=== PATIENT | female | born 1960 | race Hispanic/Latino ===

== ENCOUNTER 2019-12-02 17:32 | Emergency (ER) | payer BC ==
--- NOTE | 2019-12-02 18:46 | RAD REPORT ---
EXAM DESCRIPTION: CT - Head Brain Wo Cont - 12/02/2019 6:31 pm CLINICAL HISTORY: Numbness/Levin's palsy COMPARISON: None. TECHNIQUE: Computed axial tomography of the head was obtained. IV contrast was not requested. All CT scans are performed using dose optimization technique as appropriate and may include automated exposure control or mA/KV adjustment according to patient size. FINDINGS: An intracranial bleed is not seen . The ventricles are normal in caliber. No extra-axial fluid collection is noted. Fluid within the sinuses/ mastoids is not seen. IMPRESSION: No acute intracranial abnormality is seen. If patient's symptoms persist MRI of the bra in would be recommended.
[2019-12-02] MEDS ORDERED: LORAZEPAM 1 MG TABLET ONE (19:11)
[2019-12-02] MEDS ORDERED: predniSONE 20 MG TAB ONE (19:11)
[2019-12-02] MEDS ORDERED: ACYCLOVIR 400 MG TABLET ONE (19:11)
--- NOTE | 2019-12-02 19:24 | ER ---
Nurse's Notes [facility] Name: Taylor Day Age: 59 yrs Sex: Female : 1960 Arrival Date: 12/02/2019 Time: 17:36 Bed 13 Private MD: Diagnosis: Levin's palsy Presentation: 12/02 17:49 Presenting complaint: Patient states: i was at my doctors office because she wants me tw2 to come here, because they want to make sure it is a stroke, they called the er doctor here, i noticed Saturday the delayed blinking and numbness on my mouth on the left side. Transition of care: patient was not received from another setting of care. Onset of symptoms. Risk Assessment: Do you want to hurt yourself or someone else? Patient reports no desire to harm self or others. Initial Sepsis Screen: Does the patient meet any 2 criteria? No. Patient's initial sepsis screen is negative. Does the patient have a suspected source of infection? No. Patient's initial sepsis screen is negative. Care prior to arrival: None. 17:49 Method Of Arrival: Ambulatory tw2 17:49 Acuity: ANNE 2 tw2 17:51 Presenting complaint: Patient states: i was taken off my blood pressure medicine i was tw2 on lisinopril but i was taken off about 3 months ago i still take the statin medication. Triage Assessment: 17:51 General: Appears in no apparent distress. slender, well groomed, Behavior is calm, tw2 cooperative, appropriate for age. Pain: Complains of pain in "headache". Historical: - Allergies: 17:53 No Known Allergies; tw2 - Home Meds: 17:53 atorvastatin 20 mg oral tab 1 tab once daily [Active]; tw2 - PMHx: 17:53 Hypertension; Hyperlipidemia; tw2 - PSHx: 17:53 partial hysterectomy; tw2 - Immunization history:: Adult Immunizations. - Coronavirus screen:: The patient has NOT traveled to [place] in the past 14 days. - Social history:: Smoking status: . - Ebola Screening: : Patient denies travel to an Ebola-affected area in the 21 days before illness onset. Screenin:10 Abuse screen: Denies threats or abuse. Denies injuries from another. Nutritional iw screening: No deficits noted. Tuberculosis screening: No symptoms or risk factors identified. Fall Risk None identified. Assessment: 18:09 General: Appears in no apparent distress. Behavior is calm, cooperative. Neuro: Level iw of Consciousness is awake, alert, obeys commands, Oriented to person, place, time, situation, Moves all extremities. Full function Facial droop on left, Reports. Cardiovascular: Patient's skin is warm and dry. Respiratory: Respiratory effort is even, unlabored, Respiratory pattern is regular, symmetrical. GI: No signs and/or symptoms were reported involving the gastrointestinal system. Derm: Skin is intact, is healthy with good turgor. Musculoskeletal: Range of motion: intact in all extremities. 18:45 Reassessment: Patient appears in no apparent distress at this time. Patient and/or iw family updated on plan of care and expected duration. Pain level reassessed. Patient is alert, oriented x 3, equal unlabored respirations, skin warm/dry/pink. 19:05 Reassessment: Patient appears in no apparent distress at this time. Patient and/or family updated on plan of care and expected duration. Pain level reassessed. Patient is alert, oriented x 3, equal unlabored respirations, skin warm/dry/pink. Neuro: Level of Consciousness is awake, alert, obeys commands, Oriented to person, place, time, situation, Appropriate for age Spreader Operator are equal bilaterally Moves all extremities. Gait is steady, Speech is normal, Facial droop on left, Pupils are PERRLA. Vital Signs: 17:52 BP 147 / 101; Pulse 76; Resp 17; Temp 98(TE); Pulse Ox 98% on R/A; Weight 54.43 kg (R); tw2 Height 4 ft. 11 in. (149.86 cm); Pain 5/10; 19:15 BP 138 / 88; Pulse 72; Resp 18; Pulse Ox 99% ; wh 17:52 Body Mass Index 24.24 (54.43 kg, 149.86 cm) tw2 ED Course: 17:36 Patient arrived in ED. fj1 17:50 Triage completed. tw2 17:51 Arm band placed on. tw2 18:04 Michelle Escobedo [facility]NP-C [facility]. snw 18:04 Frederick Epperson MD is Attending Physician. snw 18:09 Angélica Garcia, SANDY is Primary Nurse. iw 18:18 No provider procedures requiring assistance completed. Patient did not have IV access iw during this emergency room visit. 19:00 Patient has correct armband on for positive identification. Bed in low position. Call light in reach. Side rails up X 1. Pulse ox on. NIBP on. Administered Medications: 19:11 Drug: predniSONE 20 mg Route: PO; 19:41 Follow up: Response: No adverse reaction 19:11 Drug: Acyclovir 800 mg Route: PO; 19:41 Follow up: Response: No adverse reaction 19:11 Drug: Ativan 1 mg Route: PO; 19:41 Follow up: Response: No adverse reaction Outcome: 19:23 Discharge ordered by . snw 19:39 Discharged to home ambulatory, with family. 19:39 Condition: stable 19:39 Discharge instructions given to patient, family, Instructed on discharge instructions, follow up and referral plans. medication usage, POC Demonstrated understanding of instructions, follow-up care, medications, POC Prescriptions given X 2. 19:41 Patient left the ED. Signatures: Michelle Escobedo, JOURNAL ENTRY AUDIT CLERK-C JOURNAL ENTRY AUDIT CLERK-Csnw Angélica Garcia, RN RN Breann Bo, RN RN tw2 Kenny Johns Shiv Faith
--- NOTE | 2019-12-02 19:24 | EDPHYS ---
Physician Documentation [facility] Name: Taylor Day Age: 59 yrs Sex: Female : 1960 Arrival Date: 12/02/2019 Time: 17:36 Bed 13 Private MD: ED Physician Frederick Epperson HPI: 12/02 18:27 This 59 yrs old Female presents to ER via Ambulatory with complaints of DOCTOR snw REFERRAL. 18:27 Onset: The symptoms/episode began/occurred suddenly, 2 day(s) ago, and became snw persistent. Associated signs and symptoms: Pertinent positives: levin's palsy type s/s. The patient has not experienced similar symptoms in the past. The patient has been recently seen by a physician: the patient's primary care provider, Dr. Johnson earlier today, with similar presenting complaints, and apparently given a diagnosis of Levin's Palsy, wants CT. Historical: - Allergies: 17:53 No Known Allergies; tw2 - Home Meds: 17:53 atorvastatin 20 mg oral tab 1 tab once daily [Active]; tw2 - PMHx: 17:53 Hypertension; Hyperlipidemia; tw2 - PSHx: 17:53 partial hysterectomy; tw2 - Immunization history:: Adult Immunizations. - Coronavirus screen:: The patient has NOT traveled to [place] in the past 14 days. - Social history:: Smoking status: . - Ebola Screening: : Patient denies travel to an Ebola-affected area in the 21 days before illness onset. ROS: 18:26 Constitutional: Negative for fever, chills, and weight loss, Neck: Negative for injury, snw pain, and swelling, Cardiovascular: Negative for chest pain, palpitations, and edema, Respiratory: Negative for shortness of breath, cough, wheezing, and pleuritic chest pain, Abdomen/GI: Negative for abdominal pain, nausea, vomiting, diarrhea, and constipation, Back: Negative for injury and pain, : Negative for injury, bleeding, discharge, and swelling, MS/Extremity: Negative for injury and deformity, Skin: Negative for injury, rash, and discoloration, Neuro: Negative for headache, weakness, numbness, tingling, and seizure, Psych: Negative for depression, anxiety, suicide ideation, homicidal ideation, and hallucinations. 18:26 Eyes: Positive for left eyelid slow to close, unable to hold water in left side of mouth while brushing teeth. Exam: 18:25 Constitutional: This is a well developed, well nourished patient who is awake, alert, snw and in no acute distress. ENT: Nares patent. No nasal discharge, no septal abnormalities noted. Tympanic membranes are normal and external auditory canals are clear. Oropharynx with no redness, swelling, or masses, exudates, or evidence of obstruction, uvula midline. Mucous membranes moist. Neck: Trachea midline, no thyromegaly or masses palpated, and no cervical lymphadenopathy. Supple, full range of motion without nuchal rigidity, or vertebral point tenderness. No Meningismus. Chest/axilla: Normal chest wall appearance and motion. Nontender with no deformity. No lesions are appreciated. Cardiovascular: Regular rate and rhythm with a normal S1 and S2. No gallops, murmurs, or rubs. Normal PMI, no JVD. No pulse deficits. Respiratory: Lungs have equal breath sounds bilaterally, clear to auscultation and percussion. No rales, rhonchi or wheezes noted. No increased work of breathing, no retractions or nasal flaring. Abdomen/GI: Soft, non-tender, with normal bowel sounds. No distension or tympany. No guarding or rebound. No evidence of tenderness throughout. Back: No spinal tenderness. No costovertebral tenderness. Full range of motion. Skin: Warm, dry with normal turgor. Normal color with no rashes, no lesions, and no evidence of cellulitis. MS/ Extremity: Pulses equal, no cyanosis. Neurovascular intact. Full, normal range of motion. Neuro: Awake and alert, GCS 15, oriented to person, place, time, and situation. Cranial nerves II-XII grossly intact. Motor strength 5/5 in all extremities. Sensory grossly intact. Cerebellar exam normal. Normal gait. Psych: Awake, alert, with orientation to person, place and time. Behavior, mood, and affect are within normal limits. 18:25 Head/face: Noted is left eye and left mouth with decreased movement, forehead is however spared. 18:25 Eyes: Periorbital structures: lag in left lid closure, Pupils: no acute changes, Extraocular movements: no acute changes, Conjunctiva: normal, Nystagmus: is not appreciated. Vital Signs: 17:52 BP 147 / 101; Pulse 76; Resp 17; Temp 98(TE); Pulse Ox 98% on R/A; Weight 54.43 kg (R); tw2 Height 4 ft. 11 in. (149.86 cm); Pain 5/10; 19:15 BP 138 / 88; Pulse 72; Resp 18; Pulse Ox 99% ; wh 17:52 Body Mass Index 24.24 (54.43 kg, 149.86 cm) tw2 MDM: 18:11 Patient medically screened. snw 19:24 Data reviewed: vital signs, nurses notes. Data interpreted: Pulse oximetry: on room air snw is 98 %. Interpretation: normal. Counseling: I had a detailed discussion with the patient and/or guardian regarding: the historical points, exam findings, and any diagnostic results supporting the discharge/admit diagnosis, the presence of at least one elevated blood pressure reading (>120/80) during this emergency department visit, radiology results, the need for outpatient follow up, to return to the emergency department if symptoms worsen or persist or if there are any questions or concerns that arise at home. Special discussion: Based on the history and exam findings, there is no indication for further emergent testing or inpatient evaluation. I discussed with the patient/guardian the need to see the primary care provider for further evaluation of the symptoms. 12/02 18:12 Order name: CT Head Brain wo Cont snw 12/02 18:57 Order name: CT; Complete Time: 18:58 EDMS Administered Medications: 19:11 Drug: predniSONE 20 mg Route: PO; 19:41 Follow up: Response: No adverse reaction 19:11 Drug: Acyclovir 800 mg Route: PO; 19:41 Follow up: Response: No adverse reaction 19:11 Drug: Ativan 1 mg Route: PO; 19:41 Follow up: Response: No adverse reaction Disposition: 12/03 08:26 Co-signature as Attending Physician, Frederick Epperson MD I agree with the assessment and kdr plan of care. Disposition: 12/02/19 19:23 Discharged to Home. Impression: Levin's palsy. - Condition is Stable. - Discharge Instructions: Levin Palsy, Adult, How to Use Eye Drops and Eye Ointments, Eye Patch, Adult, Dry Eye. - Prescriptions for Valtrex 1 g Oral Tablet - take 1 tablet by ORAL route every 8 hours for 7 days; 21 tablet. Prednisone 20 mg Oral Tablet - take 2 tablet by ORAL route once daily for 5 days; 10 tablet. - Medication Reconciliation Form, Thank You Letter, Antibiotic Education, Prescription Opioid Use form. - Follow up: Emergency Department; When: As needed; Reason: Recheck today's complaints, Continuance of care, Re-evaluation by your physician. Follow up: Private Physician; When: 2 - 3 days; Reason: Recheck today's complaints, Continuance of care, Re-evaluation by your physician. Signatures: Dispatcher [employer]DAK Frederick Epperson MD MD kdr Michelle Escobedo, MOTOR BUS DRIVER-C MOTOR BUS DRIVER-Csnw Breann Bo RN RN tw2 Kenny Johns Corrections: (The following items were deleted from the chart) 12/02 19:41 19:23 12/02/2019 19:23 Discharged to Home. Impression: Levin's palsy. Condition is wh Stable. Discharge Instructions: Levin Palsy, Adult, How to Use Eye Drops and Eye Ointments, Eye Patch, Adult, Dry Eye. Prescriptions for Valtrex 1 g Oral Tablet - take 1 tablet by ORAL route every 8 hours for 7 days; 21 tablet, Prednisone 20 mg Oral Tablet - take 2 tablet by ORAL route once daily for 5 days; 10 tablet. and Forms are Medication Reconciliation Form, Thank You Letter, Antibiotic Education, Prescription Opioid Use. Follow up: Emergency Department; When: As needed; Reason: Recheck today's complaints, Continuance of care, Re-evaluation by your physician. Follow up: Private Physician; When: 2 - 3 days; Reason: Recheck today's complaints, Continuance of care, Re-evaluation by your physician. snw
[2019-12-02 19:46] VITALS: TEMP 98
[2019-12-02 19:47] VITALS: BP 138/88; O2SAT 99
== END 2019-12-02 19:41 | disposition home or self-care (01) ==
LOC: ER 17:32
DX: G51.0 Bell's palsy (principal); I10 Essential (primary) hypertension; E78.5 Hyperlipidemia, unspecified
CPT/HCPCS: 70450; 99283; J7512